=== PATIENT | male | born 1990 | race African-American/Black ===

== ENCOUNTER 2018-09-19 00:52 | Emergency (ER) | payer SELFPAY ==
[2018-09-19] MEDS ORDERED: ONDANSETRON 4 MG/2 ML VIAL IVPUSH ONE (01:12)
[2018-09-19] MEDS ORDERED: FAMOTIDINE 20 MG/50 ML IVPB 20 MG/50 ML MG IVPB ONE ×2 (01:12→02:43)
[2018-09-19] MEDS ORDERED: ACETAMINOPHEN 1000 MG/100 ML VIAL (NON FORMULARY) IVPB ONE (01:12)
[2018-09-19] MEDS ORDERED: SODIUM CHLORIDE 1,000 ML IV STA (01:12)
--- NOTE | 2018-09-19 01:12 | PDOC ---
History of Present Illness - General Stated Complaint: VOMITTING Time Seen by Provider: 09/19/18 01:01 - History of Present Illness Initial Comments: 09/19/18 01:02 28 yo M with no significant pmh who p/w midabdominal pain, and vomiting. Patient reports acute onset of mid abdominal pain at 600 PM ( 09/18/18) following PO intake of "[place] [employer]," states that he has had multiple episodes of bilious emesis today. Also endorses diffuse crampy abdominal pain following PO ingestion. Nml bowel habits. Denies symptom management. Symptoms worse with PO intake. Denies abdominal trauma. Does not f/w GI. Denies h/o endoscopy. Patient denies VICTORIA, vision change, palpitations, cough, wheezing, orthopena, PND , leg swelling/pain, F,C, CP, SOB, urinary complaints, hematuria, BPR, diarrhea , constipation, lightheadedness, weakness, sensory changes. PMHx: as noted above Surgical: Denies abdominal surgery ROS: as noted SHx: Denies Etoh, IVDA, tobacco use Allergies: NKDA Past History - Past Medical History Allergies/Adverse Reactions: Allergies Allergy/AdvReac Type Severity Reaction Status Date / Time No Known Allergies Allergy Verified 09/19/18 01:20 Home Medications: Ambulatory Orders Lurasidone HCl [Latuda -] 40 mg PO DAILY #0 tablet 06/24/11 Ondansetron [Zofran Odt -] 4 mg SL BID #14 od.tablet 09/19/18 Asthma: No Cardiac Disorders: No COPD: No Diabetes: No GI Disorders: No Disorders: No HTN: No Seizures: No - Surgical History Abdominal Surgery: No Appendectomy: No Cardiac Surgery: No Cholecystectomy: No Lung Surgery: No Neurologic Surgery: No Orthopedic Surgery: No - Reproductive History Testicular Surgery: No - Suicide/Smoking/Psychosocial Hx Smoking History: Current some day smoker Have you smoked in the past 12 months: Yes Number of Cigarettes Smoked Daily: 5 Hx Alcohol Use: No Drug/Substance Use Hx: Yes Substance Use Type: Marijuana Hx Substance Use Treatment: No Review of Systems - Review of Systems Comments:: 09/19/18 01:04 GENERAL/CONSTITUTIONAL: No fever or chills. No weakness. HEAD, EYES, EARS, NOSE AND THROAT: No change in vision. No ear pain or discharge. No sore throat. CARDIOVASCULAR: No chest pain or shortness of breath RESPIRATORY: No cough, wheezing, or hemoptysis. GASTROINTESTINAL: + Abdominal pain, nausea, vomiting. No diarrhea or constipation. GENITOURINARY: No dysuria, frequency, or change in urination. MUSCULOSKELETAL: No joint or muscle swelling or pain. No neck or back pain. SKIN: No rash NEUROLOGIC: No headache, vertigo, loss of consciousness, or change in strength/ sensation. ENDOCRINE: No increased thirst. No abnormal weight change HEMATOLOGIC/LYMPHATIC: No anemia, easy bleeding, or history of blood clots. ALLERGIC/IMMUNOLOGIC: No hives or skin allergy. *Physical Exam - Physical Exam Comments: 09/19/18 01:04 GENERAL: Awake, alert, and fully oriented, in no acute distress HEAD: No signs of trauma, normocephalic, atraumatic EYES: PERRLA, EOMI, sclera anicteric, conjunctiva clear ENT: Hearing grossly normal, nares patent, oropharynx clear without exudates. Moist mucosa NECK: Normal ROM, supple, no lymphadenopathy, JVD, or masses LUNGS: No distress, speaks full sentences, clear to auscultation bilaterally HEART: Regular rate and rhythm, normal S1 and S2, no murmurs, rubs or gallops, peripheral pulses normal and equal bilaterally. ABDOMEN: + diffuse ttp. Soft, NDS, normoactive bowel sounds. No guarding, no rebound. No masses. Neg CVA ttp. EXTREMITIES : Normal inspection, Normal range of motion, no edema. No clubbing or cyanosis. NEUROLOGICAL: Cranial nerves II through XII grossly intact. Normal speech, normal gait, no focal sensorimotor deficits SKIN: Warm, Dry, normal turgor, no rashes or lesions noted ED Treatment Course - LABORATORY CBC & Chemistry Diagram: 09/19/18 01:28 09/19/18 01:28 Medical Decision Making - Medical Decision Making 09/19/18 01:14 28 yo M with no significant pmh who p/w acute onset of mid abdominal pain at 600 PM ( 09/18/18) following PO intake of "[place] Food,asx. w/ multiple episodes of bilious emesis. Vitals wnl, AF, A&Ox3. Physical exam with diffuse abdominal ttp. Will consider pancreatitis, biliary dz., gastritis, esophagitis, gastroenteritis, diverticulitis, appendicitis, colitis. Low suspicion urinary. Provide antiemetic, analgesia, and fluid control. Ed Course: Zofran, NS, Tylenol, Famotidine 09/19/18 02:26 WBC: 14.5 CMP: Unremarkable 09/19/18 05:25 Zofran sent to pharmacy Reglan Able to tolerate PO intake. Stable for d/c with return precautions. *DC/Admit/Observation/Transfer Diagnosis at time of Disposition: Abdominal pain with vomiting - Discharge Dispostion Condition at time of disposition: Good - Prescriptions Prescriptions: Ondansetron [Zofran Odt -] 4 mg SL BID #14 od.tablet - Referrals - Patient Instructions Printed Discharge Instructions: DI for Vomiting -- Adult Additional Instructions: Please return to the emergency department with any new or worsening symptoms or concerns. Please follow up with your primary care physician within 72 hours.Take Zofran as needed for symptoms. - Post Discharge Activity - Attestations Physician Attestion: 09/19/18 01:04 I attest to the information provided in this note.
--- NOTE | 2018-09-19 01:16 | PDOC ---
Attending Attestation - Resident Resident Name: Josh Foy - ED Attending Attestation I have performed the following: I have examined & evaluated the patient, The case was reviewed & discussed with the resident, I agree w/resident's findings & plan, Exceptions are as noted - HPI HPI: 28 yo M no PMH presents with multiple episodes of vomiting over the past few hours since he ate [employer] food. He suspects the food was bad. No sick contacts. Emesis is bilious, nonbloody. He c/o crampy upper abdominal pain. No diarrhea. No fever. - Physicial Exam PE: GENERAL: Awake, alert, and fully oriented. Appears uncomfortable. HEAD: No signs of trauma EYES: PERRLA, EOMI, sclera anicteric, conjunctiva clear ENT: Auricles normal inspection, hearing grossly normal, nares patent, oropharynx clear without exudates. Dry mucosa NECK: Normal ROM, supple, no lymphadenopathy, JVD, or masses LUNGS: Breath sounds equal, clear to auscultation bilaterally. No wheezes, and no crackles HEART: Regular rate and rhythm, normal S1 and S2, no murmurs, rubs or gallops ABDOMEN: Soft, diffuse moderate tenderness, hyperactive bowel sounds. +Guarding , no rebound. No masses EXTREMITIES: Normal range of motion, no edema. No clubbing or cyanosis. No cords, erythema, or tenderness NEUROLOGICAL: Cranial nerves II through XII grossly intact. Normal speech, normal gait. Motor and sensation intact SKIN: Diaphoretic, normal turgor, no rashes or lesions noted. - Medical Decision Making Pt with N/V that started shortly after eating takeout. Will give IV fluids, zofran, H2 marcelo, and reassess.
[2018-09-19 01:46] LABS: BASO % 0.2 % (0-2.0); HEMATOCRIT 39.9 % (35.4-49); HEMOGLOBIN 13.5 GM/dL (11.7-16.9); LYMPH % 8.7 % (8-40); MCH 31.8 pg (25.7-33.7); MCHC 33.8 g/dl (32.0-35.9); MEAN CELL VOLUME 93.9 fl (80-96); MEAN PLT VOLUME 8.4 fl (7.5-11.1); MONO % 6.6 % (3.8-10.2); NEUT % 84.5 % (42.8-82.8); PLATELET COUNT 177 K/MM3 (134-434); RBC 4.25 M/mm3 (4.00-5.60); RDW 13.1 % (11.9-15.9); WHITE BLOOD COUNT 14.5 K/mm3 (4.0-10.0)
[2018-09-19 01:57] VITALS: BP 137/63; PULSE 67; TEMP 97.9; BMI 25.4
[2018-09-19 02:06] LABS: ALK PHOS 116 U/L (45-117); ANION GAP 5 MMOL/L (8-16); BILIRUBIN,TOTAL 0.4 mg/dL (0.2-1); BLOOD UREA NITROGEN 16 mg/dL (7-18); CALCIUM 8.9 mg/dL (8.5-10.1); CHLORIDE 102 mmol/L (98-107); CO2 29 mmol/L (21-32); CREATININE 0.9 mg/dL (0.55-1.3); GLUCOSE,RANDOM 126 mg/dL (74-106); POTASSIUM 4.1 mmol/L (3.5-5.1); SGOT/AST 137 U/L (15-37); SGPT/ALT 85 U/L (13-61); SODIUM 136 mmol/L (136-145)
[2018-09-19] MEDS ORDERED: METOCLOPRAMIDE HCL INJECTION 10 MG/2 ML VIAL IVPUSH ONE (02:32)
[2018-09-19] MEDS ORDERED: ONDANSETRON 4 MG/2 ML VIAL ONE (02:43)
[2018-09-19] MEDS ORDERED: METOCLOPRAMIDE HCL INJECTION 10 MG/2 ML VIAL ONE (02:43)
[2018-09-19] MEDS ORDERED: ACETAMINOPHEN INJECTION 100 ML IVPB ONE (02:44)
== END 2018-09-19 06:28 | disposition home or self-care (01) ==
LOC: JER 00:52
PROC: 3E0337Z Introduction of Electrolytic and Water Balance Substance into Peripheral Vein, Percutaneous Approach (ICD-10-PCS; principal; 2018-09-19)
PROC: 3E033NZ Introduction of Analgesics, Hypnotics, Sedatives into Peripheral Vein, Percutaneous Approach (ICD-10-PCS; 2018-09-19)
PROC: 3E033GC Introduction of Other Therapeutic Substance into Peripheral Vein, Percutaneous Approach (ICD-10-PCS; 2018-09-19)
PROC: 3E033GC Introduction of Other Therapeutic Substance into Peripheral Vein, Percutaneous Approach (ICD-10-PCS; 2018-09-19)
DX: R10.84 Generalized abdominal pain (principal); R11.10 Vomiting, unspecified
CPT/HCPCS: 36415; 80053; 83690; 85025; 99282-25; J0131; J7030

== ENCOUNTER 2023-10-05 22:24 | Observation (INO) | payer SELFPAY ==
[2023-10-05] MEDS ORDERED: ACETAMINOPHEN INJECTION 100 ML IVPB ONE (22:55)
[2023-10-05] MEDS ORDERED: ONDANSETRON 4 MG/2 ML VIAL ONE (22:56)
[2023-10-05] MEDS ORDERED: MAG HYDROX/AL HYDROX/SIMETH 30 ML UNIT-DOSE CUP ONE (22:56)
[2023-10-05] MEDS ORDERED: FAMOTIDINE 10 MG/ML VIAL IVPB ONE (22:58)
[2023-10-05] MEDS: FAMOTIDINE 20 MG/50 ML IVPB 20 MG/50 ML MG IVPB ONE (23:24)
[2023-10-05] MEDS: SODIUM CHLORIDE 1,000 ML IV STA (23:24)
[2023-10-05] MEDS: ACETAMINOPHEN 1000 MG/100 ML BAG IVPB ONE (23:24)
[2023-10-05] MEDS: MAG HYDROX/AL HYDROX/SIMETH 30 ML UNIT-DOSE CUP PO ONE (23:24)
[2023-10-05 23:25] LABS: HEMATOCRIT 44.6 % (35.4-49); HEMOGLOBIN 14.5 GM/dL (11.7-16.9); MCH 30.1 pg (25.7-33.7); MCHC 32.5 g/dl (32.0-35.9); MEAN CELL VOLUME 92.5 fl (80-96); MEAN PLT VOLUME 8.1 fl (7.5-11.1); PLATELET COUNT 202 10^3/uL (134-434); RBC 4.82 M/mm3 (4.00-5.60); RDW 13.7 % (11.9-15.9); WHITE BLOOD COUNT 23.7 K/mm3 (4.0-10.0)
[2023-10-05] MEDS: ONDANSETRON 4 MG/2 ML VIAL IVPUSH ONE (23:25)
[2023-10-05 23:47] LABS: POTASSIUM 3.8 mmol/L (3.5-5.1)
[2023-10-05 23:49] LABS: ALBUMIN 4.1 g/dl (3.4-5.0); MAGNESIUM 1.8 mg/dL (1.8-2.4)
[2023-10-05 23:50] LABS: BLOOD UREA NITROGEN 18.3 mg/dL (7-18)
[2023-10-05 23:54] LABS: BILIRUBIN,TOTAL 0.9 mg/dL (0.2-1); TOT PROT 7.2 g/dl (6.4-8.2)
[2023-10-05 23:59] LABS: ANISOCYTOSIS 1+; MACROCYTOSIS 0
[2023-10-06] MEDS ORDERED: METOCLOPRAMIDE HCL INJECTION 10 MG/2 ML VIAL ONE (01:07)
[2023-10-06] MEDS: METOCLOPRAMIDE HCL INJECTION 10 MG/2 ML VIAL IVPUSH ONE (01:15)
[2023-10-06] MEDS ORDERED: HALOPERIDOL LACTATE 5 MG/ML ONE ×2 (03:00→05:32)
[2023-10-06] MEDS: HALOPERIDOL LACTATE 5 MG/ML IM ONE ×2 (03:06→05:46)
[2023-10-06] MEDS: SODIUM CHLORIDE 1,000 ML IV SCH (05:53)
[2023-10-06] MEDS ORDERED: ACETAMINOPHEN INJECTION 100 ML IVPB ONE (08:02)
[2023-10-06] MEDS: ACETAMINOPHEN 1000 MG/100 ML BAG IVPB ONE (08:09)
[2023-10-06] MEDS ORDERED: ONDANSETRON 4 MG/2 ML VIAL IVPUSH PRN (09:16)
[2023-10-06] MEDS: PANTOPRAZOLE SODIUM 40 MG VIAL IVPUSH SCH (12:04)
[2023-10-06] MEDS: ENOXAPARIN NA (PORCINE) 40 MG/0.4 ML DISP.SYRIN SQ SCH (12:04)
[2023-10-06] MEDS: LACTATED RINGERS SOLUTION 1,000 ML/1,000 ML INFUS.BAG IV SCH (12:06)
[2023-10-06] MEDS: PIPERACILLIN/TAZOB 3.375 GM 3.375 GM in DEXTROSE 5%-WATER - 50 ML IVPB SCH (14:15)
[2023-10-06 16:35] LABS: URINE APPEARANCE CLEAR; URINE BILIRUBIN NEGATIVE (NEGATIVE); URINE COLOR YELLOW; URINE GLUCOSE (UA) NEGATIVE (NEGATIVE); URINE KETONE 1+ (NEGATIVE); URINE LEUK ESTERASE NEGATIVE (NEGATIVE); URINE NITRITE NEGATIVE (NEGATIVE); URINE PROTEIN NEGATIVE (NEGATIVE); URINE UROBILINOGEN 0.2 mg/dL (0.2-1.0)
[2023-10-06 16:40] LABS: METHADONE, UR NEGATIVE (NEGATIVE); PHENCYCLIDINE,URINE NEGATIVE (NEGATIVE); URINE BENZODIAZEPINES NEGATIVE (NEGATIVE)
[2023-10-06 16:41] LABS: COCAINE, UR NEGATIVE (NEGATIVE); OPIATES, URI NEGATIVE (NEGATIVE); URINE AMPHETAMINES NEGATIVE (NEGATIVE); URINE BARBITURATES NEGATIVE (NEGATIVE)
[2023-10-06 22:33] VITALS: RESP 18
[2023-10-07 09:24] LABS: BASO % 0.1 % (0-2.0); EOS % 0.1 % (0-4.5); HEMATOCRIT 42.9 % (35.4-49); HEMOGLOBIN 14.4 GM/dL (11.7-16.9); LYMPH % 24.2 % (8-40); MCH 30.8 pg (25.7-33.7); MCHC 33.5 g/dl (32.0-35.9); MEAN PLT VOLUME 8.8 fl (7.5-11.1); NEUT % 62.6 % (42.8-82.8); PLATELET COUNT 180 10^3/uL (134-434); RBC 4.66 M/mm3 (4.00-5.60); RDW 13.5 % (11.9-15.9); WHITE BLOOD COUNT 9.9 K/mm3 (4.0-10.0)
[2023-10-07 09:46] LABS: POTASSIUM 4.2 mmol/L (3.5-5.1)
[2023-10-07 10:12] LABS: ALBUMIN 3.5 g/dl (3.4-5.0); BLOOD UREA NITROGEN 11.4 mg/dL (7-18); MAGNESIUM 2.2 mg/dL (1.8-2.4)
[2023-10-07 10:15] LABS: CREATININE 0.9 mg/dL (0.55-1.3); PHOSPHOROUS 2.6 mg/dL (2.5-4.9)
[2023-10-07 10:16] LABS: BILIRUBIN,TOTAL 0.4 mg/dL (0.2-1); TOT PROT 6.3 g/dl (6.4-8.2)
[2023-10-07 14:19] VITALS: BP 105/72; PULSE 57; TEMP 98.6
[2023-10-07 23:59] VITALS: BMI 22.9
== END 2023-10-07 17:30 | disposition left against medical advice (07) ==
LOC: JER 22:24 → JERBED 10-06 05:02 → J8W 10-06 10:55
PROVIDERS: ATTEND Internal Medicine
CPT/HCPCS: 0241U-QW; 36415; 74177-TC; 76705-TC; 80053; 80307; 81003; 83690; 83735; 84100; 84484; 85025; 87086; 93005; 93010; 99285-25; G0378; J0131; Q9967